=== PATIENT | male | born 1985 | race American Indian/Alaskan Native ===

== ENCOUNTER 2017-06-25 15:51 | Outpatient (CLI) | payer BC ==
--- NOTE | 2017-06-25 19:12 | Cat Scan Report ---
FINAL REPORT EXAM: CT ABDOMEN PELVIS W CON HISTORY: LEFT UPPER QUADRANT PAIN TECHNIQUE: Serial axial images through the abdomen and pelvis with coronal and sagittal reconstruction. Intravenous administration of 100 milliliters Omni 300 contrast PRIORS: None. FINDINGS: There is mild atelectasis in the lung bases. There is fatty infiltration of the liver. Gallbladder appears normal. Pancreas appears normal. Spleen appears normal. Adrenal glands appear normal. Kidneys appear normal. Aorta is normal in caliber. Bladder is decompressed. No free fluid. Appendix appears normal. No gross bowel abnormality is identified. No acute osseous abnormality is identified. IMPRESSION: 1. Fatty infiltration of the liver. 2. No free fluid or inflammatory changes are seen in the abdomen or pelvis.
== END 2017-06-25 15:52 | disposition home or self-care (01) ==
LOC: CT 15:51
PROVIDERS: ATTEND Internal Medicine
DX: K76.0 Fatty (change of) liver, not elsewhere classified (principal); J98.11 Atelectasis; R16.1 Splenomegaly, not elsewhere classified
CPT/HCPCS: 74177; Q9967